=== PATIENT | male | born 1970 | race African-American/Black ===

== ENCOUNTER 2016-10-02 11:23 | Inpatient (IN) | payer OTHER ==
--- NOTE | ~2016-10-02 | HP ---
Unit #: [id number] #: [id number] Patient: DENNIS FARRELL JR [id number] [place] [address] [id number] I MR#: [id number] NAME: DENNIS FARRELL JR ROOM: P185 Age: 45 Sex: M Admission Date: 10/02/2016 : 1970 Attending Physician: Jayla Marte M.D. Admitting Physician: Jayla Marte M.D. Primary Care Physician: Generic Doctor Not In System HISTORY AND PHYSICAL HISTORY OF PRESENT ILLNESS Dennis is a 45 year old admitted to [facility] because of his abuse alcohol. He is detoxing. He has had other admissions to this facility for treatment of the same. PAST MEDICAL HISTORY 1. Long history of alcohol abuse. 2. Long history of poly illicit substance abuse to include cocaine. 3. Degenerative disc disease. a. Chronic pain. 4. Hepatitis C. He completed therapy with Dr. King. 5. History of positive PPD. Chest x-rays have been negative. Date of his last chest x-ray is unknown. PAST SURGICAL HISTORY 1. Low back. 2. Right boxers fracture with ORIF. ALLERGIES Ultram, Risperdal. SOCIAL HISTORY Smokes one pack per day. Has a history of alcohol abuse and cocaine use. FAMILY HISTORY Medically noncontributory. REVIEW OF SYSTEMS CONSTITUTIONAL: No fever or chills. HEENT: Denies any sore throat, ear pain or runny nose. CARDIOVASCULAR: Denies chest pain, irregular heart rhythm or palpitations. CHEST: Denies shortness of breath or cough. No hemoptysis. GASTROINTESTINAL: Denies nausea, vomiting, diarrhea or chronic constipation. ENDOCRINE: Denies history of increased thirst or urination. No recent significant weight loss or gain. GENITOURINARY: Denies dysuria, frequency, or hematuria. SKIN: Denies any rashes. HEMATOLOGIC: Denies history of increased bleeding or bruising. MUSCULOSKELETAL: Denies any hot, swollen joints. No generalized muscle pain. Unit #: [id number] #: [id number] Patient: DENNIS FARRELL JR NEUROLOGIC: Denies problems with vision or speech. No frequent, severe headaches. No numbness, tingling or weakness in any extremities. Denies loss of bladder or bowel control. CURRENT MEDICATIONS Detox protocol PHYSICAL EXAMINATION GENERAL: Alert, well-nourished, in no apparent distress. VITAL SIGNS: Blood pressure 110/70, heart rate 80, respirations 16, temperature 98.6. WEIGHT: 175 pounds. HEIGHT: 6'0". SKIN: Warm and dry without rash or lesion. HEENT: Normocephalic. TMs not viewed. Oral and nasal passages clear. Conjunctivae clear. Pupils equal, round and reactive to light and accommodation. Extraocular movements intact. NECK: Supple without lymphadenopathy or thyromegaly. HEART: Regular rate and rhythm without murmur. LUNGS: Clear. ABDOMEN: Soft, nontender. : Not done. EXTREMITIES: No evidence of cyanosis, clubbing or edema. Moves all extremities without focal deficit. NEUROLOGICAL: Grossly within normal limits. Cranial Nerves: II: Visual eldridge are intact. III, IV AND : Extraocular movements are intact. Pupils are equal, round and reactive to light. V: Facial sensation is grossly normal. VII: Facial movements and expression are normal. VIII: Auditory acuity grossly intact. IX, X: Uvula is midline. Phonation is normal. XI: Patient shrugs shoulders and turns head normally. XII: Tongue protrudes in the midline. Sensory and Motor Function: Sensory and motor sensation is grossly normal. Motor: moves all extremities well. Coordination: Gait is normal. Deep Tendon Reflexes: Intact. IMPRESSION Psychiatric admission RECOMMENDATIONS PSYCHIATRIC: Per psychiatrist. MEDICAL: I see no contraindications to participating in facility's activities. MEDICAL PROGNOSIS Good. MEDICAL CONDITION Stable. Dictated by... Susu Vazquez P.A.-C. for Sharron Porter M.D. Unit #: [id number] #: [id number] Patient: DENNIS FARRELL JR BRITTANIE/sidney TD: 10/03/2016 01:50 JOB #: [id number] HISTORY AND PHYSICAL X Susu Vazquez X HISTORY AND PHYSICAL
--- NOTE | ~2016-10-02 | PN ---
Unit #: [id number] #: [id number] Patient: OBIE OCHOA JR [id number] [facility] [address] [place] [address] [id number] I MR#: [id number] NAME: OBIE OCHOA JR ROOM: P185 Age: 45 Sex: M Admission Date: 10/02/2016 : 1970 Attending Physician: Jayla Marte M.D. Admitting Physician: Jayla Marte M.D. Primary Care Physician: Generic Doctor Not In System [facility] PROGRESS NOTES DATE October 04, 2016 DISCUSSION Mr. Ochoa is a 45-year-old male, who was seen today and chart was reviewed and the case was discussed with the staff. He has been anxious, withdrawn, depressed, and seclusive to himself and reports not feeling good and has persistent depressive symptoms with increasing anxiety. Meanwhile, he has been taking the medications and tolerating them fairly well with no reported side effects. MENTAL STATUS EXAMINATION Middle-aged male, who was casually dressed with fair personal hygiene and appears to be in no acute distress or discomfort. He was awake and alert on interaction with intact orientation. His mood is anxious with a congruent affect. He reports having suicidal ideation but denies any homicidal ideations. His insight and judgment remain slightly impaired. TREATMENT PLAN 1. We will continue him on his current medications and treatment protocol, and will monitor his response to the medications, and make further adjustments as needed. 2. We will continue to followup. Dictated by... Haylee Acevedo/alma rosa TD: 10/05/2016 08:36 JOB #: [id number] Unit #: [id number] #: [id number] Patient: OBIE OCHOA JR [facility] PROGRESS NOTES X Jayla Marte MD PROGRESS NOTE
--- NOTE | ~2016-10-02 | PN ---
Unit #: [id number] #: [id number] Patient: BOIE OCHOA JR [id number] [facility] [address] [place] [address] [id number] I MR#: [id number] NAME: OBIE OCHOA JR ROOM: P185 Age: 45 Sex: M Admission Date: 10/02/2016 : 1970 Attending Physician: Jayla Marte M.D. Admitting Physician: Jayla Marte M.D. Primary Care Physician: Generic Doctor Not In System [facility] PROGRESS NOTES DATE OF SERVICE 10/03/2016 DISCUSSION Mr. Ochoa is a 45-year-old male who was seen today. Chart was reviewed and case was discussed with the staff. He has been anxious, withdrawn, depressed, and seclusive to himself with blunted affect, minimal interaction, poor eye contact, and has been expressing feelings of hopelessness and suicidal thoughts. Meanwhile, he has not shown any agitation or aggression. MENTAL STATUS EXAMINATION Middle-aged male who is casually dressed with fair personal hygiene, appears to be in no acute distress or discomfort. The patient was awake and alert on interaction with intact orientation. His mood is anxious and depressed with congruent affect. His speech is slow and restricted in content. He reports having suicidal ideation but denies any homicidal ideations. His insight and judgment remain significantly impaired. TREATMENT PLAN 1. We will continue him on his current medications and treatment protocol. We will monitor his response to the medications and make further adjustments as needed. 2. We will continue to follow up. Dictated by... Haylee Acevedo/cruzitog TD: 10/04/2016 10:42 JOB #: [id number] Unit #: [id number] #: [id number] Patient: OBIE OCHAO JR [facility] PROGRESS NOTES X Jayla Marte MD PROGRESS NOTE
--- NOTE | ~2016-10-02 | PA ---
Unit #: [id number] #: [id number] Patient: [facility]LL JR [id number] [facility] [address] [place] [address] [id number] I MR#: [id number] NAME: OBIE FARRELL JR ROOM: P185 Age: 45 Sex: M Admission Date: 10/02/2016 : 1970 Date of Assessment: Attending Physician: Jayla Marte M.D. Admitting Physician: Jayla Marte M.D. Primary Care Physician: Generic Doctor Not In System PSYCHIATRIC ASSESSMENT IDENTIFYING DATA Mr. Richardson is a 45-year-old single male who is known to me from previous multiple encounters and is a resident of [place], [place] and was self-referred to the hospital on voluntary basis. CHIEF COMPLAINT "I'm not doing good. I'm feeling depressed." HISTORY OF PRESENT ILLNESS Mr. Richardson is a 45-year-old male with history of mood disorder and substance abuse, who is known to us from previous encounter, was self-referred back to the hospital reporting increasing depression, anxiety, irritability, restlessness, feelings of hopelessness and helplessness, and suicidal ideations. SUBSTANCE ABUSE HISTORY The patient reports history of alcohol, cannabis, cocaine, and opioid abuse and dependence and currently alcohol appears to be his drug of choice as he has been drinking regularly and heavily. PAST PSYCHIATRIC HISTORY The patient has had history of [facility] and has history of poor compliance with treatment recommendations on an outpatient basis. Once again, he is not active in any ongoing outpatient treatment program, is not seeing a psychiatrist, not taking any psychotropic medications. PAST MEDICAL HISTORY No acute or chronic medical illnesses. ALLERGIES Ultram and Risperdal. PERSONAL AND SOCIAL HISTORY A 45-year-old male who reports that he is single, unemployed, and essentially homeless and has poor social support system. MENTAL STATUS EXAMINATION Middle-aged male who was casually dressed with fair personal hygiene, appears to be in no acute distress or discomfort. He was awake and alert on interaction with intact orientation to time, place, and person. His mood was anxious and depressed with a congruent affect. His speech was slow and restricted in content. His thought processes were Unit #: [id number] #: [id number] Patient: OBIE FARRELL JR disorganized with some looseness of associations and suicidal ideations. His insight and judgment remain significantly impaired. DIAGNOSTIC IMPRESSION Psychiatric: Bipolar disorder, most recent episode depressed, recurrent, moderate, without psychotic features; alcohol dependence, moderate. Medical: None. Stressors: Moderate psychosocial stressors. TREATMENT PLAN 1. The patient has presented with history of substance abuse and mood disorder, and has been decompensating and will need inpatient hospitalization for detoxification, and safety, and stabilization. We will start him back on his home medications. We will adjust the medications and monitor response. 2. Supportive therapy was provided to the patient. 3. Safe, structured, and nourishing environment will be provided. ESTIMATED LENGTH OF STAY 4 to 5 days. ABILITY TO HELP SELF Limited. WILLINGNESS TO HELP SELF The patient appears to be willing to help self. STRENGTHS 1. Communicative. 2. Cooperative. PROBLEMS 1. Chronic dysphoric symptoms. 2. Poor social support system. DISCHARGE CRITERIA This will be contingent upon the patient's ability to show resolution of his depression and anxiety as well as his ability to stay safe to himself, particularly after discharge from the hospital. Dictated by... Haylee Acevedo/patrick TD: 10/03/2016 21:39 JOB #: [id number] PSYCHIATRIC ASSESSMENT X Jayla Marte MD X PSYCHIATRIC ASSESSMENT
--- NOTE | ~2016-10-02 | DS ---
Unit #: [id number] #: [id number] Patient: OBIE OCHOA JR [id number] [facility] [address] [place] [address] [id number] I MR#: [id number] NAME: OBIE OCHOA JR ROOM: P185 Age: 45 Sex: M Admission Date: 10/02/2016 : 1970 Discharge Date: 10/06/2016 Attending Physician: Jayla Marte M.D. Primary Care Physician: Generic Doctor Not In System DISCHARGE SUMMARY IDENTIFYING DATA Mr. Ochoa is a 45-year-old male who is known to us from previous multiple encounters and was self-referred to the hospital. DISCHARGE DIAGNOSES Psychiatric: Bipolar disorder, most recent episode depressed, recurrent, moderate, without psychotic features; alcohol dependence, moderate. Medical: None. Stressors: Moderate psychosocial stressors. HISTORY OF PRESENT ILLNESS Please see initial psychiatric evaluation for details. PAST PSYCHIATRIC HISTORY Please see initial psychiatric evaluation for details. PAST MEDICAL HISTORY Please see initial psychiatric evaluation for details. HOSPITAL COURSE The patient was [facility] and was oriented to the hospital environment. Routine p.r.n. medications were initiated, and he was started back on his home medications and alcohol detox protocol was initiated and Seroquel as a mood stabilizer was also started, and he was closely monitored. He was taking the medications regularly and was tolerating them fairly well, and was able to show a decent therapeutic response and was willing to continue treatment on an outpatient basis and was wanting to go to long-term chemical dependency rehab level of care and appropriate refills were made followed by which, it was decided that he will be discharged to a long-term care facility and will continue further psychiatric treatment. DISCHARGE MEDICATIONS Seroquel 400 mg at bedtime. DISCHARGE CONDITION Stable. PROGNOSIS Fair. Dictated by... Jayla Marte M.D. Unit #: [id number] #: [id number] Patient: OBIE OCHOA JR IAA/modl TD: 10/06/2016 07:40 JOB #: [id number] DISCHARGE SUMMARY X Jayla Marte MD DISCHARGE SUMMARY
--- NOTE | ~2016-10-02 | PN ---
Unit #: [id number] #: [id number] Patient: OBIE OCHOA JR [id number] [facility] [address] [place] [address] [id number] I MR#: [id number] NAME: OBIE OCHOA JR ROOM: P185 Age: 45 Sex: M Admission Date: 10/02/2016 : 1970 Attending Physician: Jayla Marte M.D. Admitting Physician: Jayla Marte M.D. Primary Care Physician: Generic Doctor Not In System [facility] PROGRESS NOTES DATE OF SERVICE: 10/05/2016 SUBJECTIVE Mr. Ochoa is a 45-year-old male, who was seen today and chart was reviewed and the case was discussed with the staff. He has been anxious, withdrawn, and rather seclusive to himself. Meanwhile, he has been cooperative with the treatment recommendations and has been taking the medications and tolerating them fairly well with no reported side effects. MENTAL STATUS EXAMINATION Middle-aged male, who was casually dressed with fair personal hygiene, appears to be in no acute distress or discomfort. He was awake and alert on interaction with intact orientation. His mood was anxious with a congruent affect. His speech was slow and goal directed. He denies any suicidal or homicidal ideations and also denies any auditory or visual hallucinations. His insight and judgment remain slightly impaired. TREATMENT PLAN 1. We will continue him on his current treatment protocol. We will monitor his response to the medications and make further adjustments as needed. 2. We will continue to follow up. Dictated by... Haylee Acevedo/patrick TD: 10/05/2016 13:45 JOB #: [id number] Unit #: [id number] #: [id number] Patient: OBIE OCHOA JR CE PROGRESS NOTES X Jayla Marte MD PROGRESS NOTE
[~2016-10-02 11:23] MED LIST: CYMBALTA30 MG PO; NEURONTIN PO; SEROQUEL400 MG PO
[2016-10-03 12:29] LABS: BASOPHIL% 0.5 % (0-2.5); EOSINOPHIL# 0.1 X10e3 (0-0.7); EOSINOPHIL% 1.9 % (0.0-7.0); HEMATOCRIT 46.2 % (38.0-50.0); HEMOGLOBIN 15.4 gm/dL (13.0-16.0); LYMPHOCYTE# 1.8 X10e3 (1.0-3.5); MEAN CELL VOLUME 98.4 FL (83-96); MEAN CORPUSCULAR HEMOGLOBIN 32.7 PG (28-34); MEAN CORPUSCULAR HGB CONC 33.3 g/dL (30-36); MEAN PLATELET VOLUME 8.2 FL (6.5-11.5); MONOCYTE# 0.4 X10e3 (0-1.0); MONOCYTE% 7.3 % (3.0-12.0); NEUTROPHIL# 3.7 X10e3 (1.5-7.1); NEUTROPHIL% 61.3 % (40-75); PLATELET COUNT 233 X10e3 (140-420); RED CELL DISTRIBUTION WIDTH 13.2 % (11.0-15.5); WHITE BLOOD COUNT 6.1 X10e3 (4.0-10.5)
[2016-10-03 12:31] LABS: DIFF IND NO
[2016-10-03 12:50] LABS: THYROID STIMULATING HORMONE 0.67 uIU/ml (0.34-5.60)
[2016-10-03 12:54] LABS: ALBUMIN SERUM 3.6 g/dL (3.5-5.0); ALKALINE PHOSPHATASE 90 U/L (32-92); ALT (SGPT) 15 U/L (10-40); AST (SGOT) 19 U/L (10-42); BILIRUBIN,TOTAL 0.5 mg/dL (0.2-2.0); BLOOD UREA NITROGEN 10 mg/dL (9-23); BUN/CREATININE RATIO 8.33; CALCIUM SERUM 9.5 mg/dL (8.4-10.2); CARBON DIOXIDE 32 mmol/L (22-31); CHLORIDE 101 mmol/L (100-111); CREATININE SERUM 1.2 mg/dL (0.6-1.4); GLOM FILT RATE Estimated ABOVE60 mL/min (>60); GLUCOSE FASTING 71 mg/dL (70-110); POTASSIUM 4.4 mmol/L (3.5-5.1); PROTEIN TOTAL SERUM 6.8 g/dL (6.0-8.3); SODIUM 141 mmol/L (135-145)
[2016-10-03 12:57] LABS: FREE THYROXIN (T4) 0.79 ng/dL (0.58-1.64)
[2016-10-04 09:41] LABS: URINE APPEARANCE CLEAR; URINE BILIRUBIN NEG (NEG); URINE BLOOD NEG (NEG); URINE COLOR DK YELLOW; URINE GLUCOSE NEG (NEG); URINE KETONE NEG (NEG); URINE LEUKOCYTE ESTERASE NEG (NEG); URINE NITRATE NEG (NEG); URINE PROTEIN NEG (NEG); URINE SPECIFIC GRAVITY 1.021 (1.003-1.035)
[2016-10-04 10:56] LABS: AMPHETAMINE NEG (NEG); BARBITURATES NEG (NEG); BENZODIAZEPINES POS (NEG); COCAINE POS (NEG); MARIJUANA NEG (NEG); OPIATES NEG (NEG); TRICYCLIC ANTIDEPRESSANTS POS (NEG); U METHADONE NEG (NEG)
== END 2016-10-06 13:15 | disposition home or self-care (01) | DRG 885 ==
LOC: P1E 11:23
PROVIDERS: Psychiatry & Neurology Psychiatry
PROC: HZ2ZZZZ Detoxification Services for Substance Abuse Treatment (ICD-10-PCS; principal; 2016-10-02)
DX: F31.9 Bipolar disorder, unspecified (principal); F10.20 Alcohol dependence, uncomplicated; F17.210 Nicotine dependence, cigarettes, uncomplicated
CPT/HCPCS: 80053; 80307; 81003; 84439; 84443; 85025; 86592